=== PATIENT | male | born 1970 | race Caucasian/White ===

== ENCOUNTER → 2016-05-17 | Outpatient (CLI) | payer OTHER ==
--- NOTE | 2016-05-17 12:41 | US ---
Ultrasound Venous Duplex/Doppler Left Leg History: Pain and swelling. M79.662. Findings: Ultrasound venous duplex and Doppler imaging of the common femoral vein, femoral vein, pop liteal vein, calf veins, greater saphenous vein origin, and contralateral common femoral vein demonst rates normal compressibility, color flow, and Doppler flow without deep venous thrombosis. Left calf region of pain demonstrates asymmetric thickening of the soleus muscle, which may represent tear or mass. Impression: 1. Left soleus muscle tear or mass. 2. No deep venous thrombosis left leg. 3. Recommend MRI of the left calf for further evaluation. Findings and recommendations left with Dr. Larry Pedraza, at 1236 hours, on May. Final report concurs with initial preliminary interpretation.
== END ==
LOC: BMCIMAGING 10:59
PROVIDERS: ATTEND Internal Medicine
DX: M62.89 Other specified disorders of muscle (principal); M79.662 Pain in left lower leg